=== PATIENT | male | born 1945 | race Caucasian/White ===

== ENCOUNTER → 2021-08-10 | Outpatient (CLI) | payer OTHER ==
--- NOTE | 2021-08-10 16:10 | 2DMMODE ---
[place] [address] 2 D/M-MODE ECHOCARDIOGRAM Name: JEN TOBAR Room: [facility]#: [id number] Admission: 08/10/21 Attend Phys: Ulises Sanchez Discharge: Date of : 49 Date of Service: 08/10/21 1610 Report #: [id number] THIS REPORT FOR: cc: Ulises Marcial Jeffrey Edwin DO Blick,Gael Westfall MD [facility] ~ APPROVED REPORT Study performed: 08/10/2021 13:42:44 EXAM: Comprehensive 2D, Doppler, and color-flow Echocardiogram Patient Location: Out-Patient BSA: 1.89 HR: 49 bpm BP: 138/70 mmHg Other Information Study Quality: Good Indications Ischemic heart disease 2D Dimensions IVSd: 13.88 (7-11mm) LVOT Diam: 20.44 (18-24mm) LVDd: 50.10 mm PWd: 10.77 (7-11mm) Ascending Ao: 33.36 (22-36mm) LVDs: 39.22 (25-40mm) Aortic Root: 29.11 mm Volumes Left Atrial Volume (Systole) LA ESV Index: 25.90 mL/m2 Aortic Valve AoV Peak Gabriel.: 2.11 m/s AO Peak Gr.: 17.83 mmHg LVOT Max P.12 mmHg AO Mean Gr.: 10.22 mmHg LVOT Mean P.15 mmHg LVOT Max V: 0.73 m/s AO V2 VTI: 51.87 cm LVOT Mean V: 0.50 m/s CRISTOFER (VTI): 1.22 cm2 LVOT V1 VTI: 19.24 cm Mitral Valve E/A Ratio: 0.88 [place] [address] 2 D/M-MODE ECHOCARDIOGRAM Name: JEN TOBAR Room: [facility]#: [id number] Admission: 08/10/21 Attend Phys: Ulises Sanchez Discharge: Date of : 49 Date of Service: 08/10/21 1610 Report #: [id number] MV Decel. Time: 331.51 ms MV E Max Gabriel.: 0.73 m/s MV PHT: 96.14 ms MVA (PHT): 2.29 cm2 TDI E/Lateral E': 9.13 E/Medial E': 12.17 Medial E' Gabirel.: 0.06 m/s Lateral E' Gabriel.: 0.08 m/s Pulmonary Valve PV Peak Gabriel.: 0.79 m/s PV Peak Gr.: 2.47 mmHg Tricuspid Valve RAP Estimate: 5.00 mmHg TR Peak Gr.: 16.27 mmHg RVSP: 21.27 mmHg PA Pressure: 21.27 mmHg Left Ventricle The left ventricle is normal size. Severe hypokinesis of the inferior wall There is normal left ventricular wall thickness. Left ventricular systolic function is mildly decreased. LVEF is 40-45%. Grade I - abnormal relaxation pattern. Right Ventricle The right ventricle is normal size. The right ventricular systolic function is normal. Atria The left atrium size is normal. The right atrium size is normal. Aortic Valve Aortic valve is calcified. No aortic regurgitation is present. Mild aortic stenosis. Mitral Valve Mild mitral annular calcification. Mitral valve leaflets are mildly thickened. Mild mitral regurgitation. No evidence of mitral valve stenosis. Tricuspid Valve The tricuspid valve is normal in structure. Mild tricuspid regurgitation[place] [address] 2 D/M-MODE ECHOCARDIOGRAM Name: JEN TOBAR Room: [facility]#: [id number] Admission: 08/10/21 Attend Phys: Ulises Sanchez Discharge: Date of : 49 Date of Service: 08/10/21 1610 Report #: [id number] Pulmonic valve is not well visualized. There is no pulmonic valvular regurgitation. Great Vessels The aortic root is normal in size. IVC is normal in size and collapses >50% with inspiration. Pericardium There is no pericardial effusion. <Conclusion> Severe hypokinesis of the inferior wall LVEF is 40-45%. Mild aortic stenosis. Mild mitral regurgitation. <ELECTRONICALLY SIGNED> By: Gael Story MD, [facility] 08/10/211609 09 09 Gael Story MD, FAC /INF
== END ==
LOC: M.CRD 13:31
PROVIDERS: ATTEND Chiropractor
DX: I08.3 Combined rheumatic disorders of mitral, aortic and tricuspid valves (principal); I25.9 Chronic ischemic heart disease, unspecified